=== PATIENT | male | born 1990 ===

== ENCOUNTER 2020-12-17 12:23 | Emergency (ER) | payer OTHER ==
[~2020-12-17] VITALS: Ht 170.2 cm; Wt 89.8 kg
[2020-12-17] MEDS ORDERED: TAMS0.4C PO (16:34)
[2020-12-17] MEDS ORDERED: PERCOCET 10-321 EACH PO (16:34)
== END 2020-12-17 16:50 | disposition home or self-care (01) ==
LOC: ER 12:23
DX: N20.0 Calculus of kidney (principal); R10.31 Right lower quadrant pain